=== PATIENT | female | born 1980 | race Caucasian/White ===

== ENCOUNTER → 2022-03-22 11:43 | Outpatient (CLI) | payer OTHER, SELFPAY ==
--- NOTE | 2022-03-22 11:46 | DI.MRI.S_ITS ---
BREAST MRI OF BOTH BREASTS: 03/22/2022 CLINICAL: Diffuse cystic mastopathy. Ripple in breast. PROCEDURE: MR BREAST BI WO/W CON INDICATIONS: Diffuse cystic mastopathy of unspecified breast TECHNIQUE: The patient was placed prone in a dedicated breast imaging coil. Precontrast axial STIR and 3D FLASH without fat saturation sequences were obtained. Both before and after bolus injection of contrast, sequential 1-minute axial 3D FLASH with fat saturation sequences for 3 time points, with subtraction images and maximum intensity projections (MIP's) generated. Delayed sagittal FLASH images with fat saturation were also obtained. CONTRAST: 20 cc ProHance IV contrast. Computer-aided detection, including computer algorithm analysis of MRI image data for lesion detection and characterization, pharmacokinetic analysis, with further physician review for interpretation, was performed. COMPARISON: Reports from outside right breast ultrasound 10/05/2021 and diagnostic mammogram 06/03/2021. No images available at this time. Prior reports document history of palpable abnormality right breast 3 o'clock 1 cm from nipple. FINDINGS: Image quality: Excellent. There is mild background parenchymal enhancement. Right breast: No mass or suspicious enhancement. No significant cysts. Retropectoral implant is intact. Left breast: No mass or suspicious enhancement. No significant cysts. Retropectoral implant is intact. Miscellaneous: No enlarged lymph nodes. IMPRESSION: BENIGN No mass or suspicious enhancement. Implants are intact. No adenopathy. BIRADS 2 Recommend comparison with prior imaging when available. A 1 year screening mammogram is recommended. COMMENT: The imaging literature indicates that a negative contrast breast MRI examination has a high sensitivity and a moderate specificity for detecting and excluding invasive carcinomas to a detection threshold of 3-5 mm; nonetheless, appropriate clinical and mammographic follow-up are recommended. MRI is not sensitive for detecting DCIS (ductal carcinoma in situ) and may not detect large invasive neoplasms that show only minimal enhancement such as mucinous carcinoma. If there are suspicious calcifications or clinically worrisome palpable masses, then biopsy should still be considered. Invasive neoplasms can be hidden by co-existent and benign enhancement caused by mastitis, hormone therapy effects, radiation therapy, , and recent biopsy or surgery. False positive examinations can occur in a number of circumstances, including breasts that have recently been subject to invasive procedures and those that contain atypical ductal hyperplasia, hormonally stimulated glandular tissue, fat necrosis, or radial scars. Dictated by: Jerald Pelayo M.D. on 03/29/2022 at 14:19 This exam was interpreted at Station ID: [id number]. Electronically Signed By: Jerald Pelayo M.D. slc/:03/29/2022 14:38:36 letter sent: Normal Exam ACR BI-RADS Category 2: Benign Finding(s) 3342F
== END ==
PROVIDERS: PCP General Practice; Referring Provider General Practice; Visit Provider General Practice
DX: N60.19 Diffuse cystic mastopathy of unspecified breast (principal); Z98.82 Breast implant status
CPT/HCPCS: 77049; A9579

== ENCOUNTER 2022-08-11 12:12 | Inpatient (IN) | payer OTHER, SELFPAY ==
[2022-07-28 12:43] VITALS: BMI 25.4
[2022-08-11] VITALS (10 sets, daily range): BP systolic 137–152; BP diastolic 80–94; PULSE 64–104; RESP 11–18; TEMP 36.3–36.8; O2SAT 91–100; BMI 25.4
--- NOTE | 2022-08-11 | DI.RAD.S_ITS ---
PROCEDURE: XR CERVICAL SPINE 2V OR 3V INDICATIONS: ACDF TECHNIQUE: 2 intraoperative view(s) of the cervical spine were acquired. COMPARISON: [facility] Outside Film, CR, XR CERVICAL SPINE 2 OR 3 VIEWS, 02/09/2022, 10:03. FINDINGS: Intraoperative views demonstrate anterior fusion hardware and interbody device placement C4-C6. IMPRESSION: Postsurgical sequelae. Dictated by: Virginia Cook M.D. on 08/12/2022 at 11:44 Transcribed by: MAY on 08/12/2022 at 11:45 Approved by: Virginia Cook M.D. on 08/12/2022 at 16:48
[2022-08-11] MEDS: LACTATED RINGERS 1,000 ML 100 ML IV (12:39)
[2022-08-11 13:10] LABS: COVID19 -Nasal RAPID Negative (Negative)
--- NOTE | 2022-08-11 14:06 | PM.PREOP ---
Pre-operative Note COVID-19 COVID-19 status: Negative Result date/Date tested (Pos, Neg/Pending): 08/10/22 Criteria for continued procedure: Expected advancement of disease process, Possibility delay results in more complex future surgery or treatment, Increased loss of function, Continuing or worsening of significant or severe pain, Deterioration of the patient's condition or overall health and Delay expected to result in less-positive ultimate med/surg outcome Interval Note History & Physical reviewed/Exam performed by Physician: Yes Changes to H&P: No
[2022-08-11] MEDS: CEFAZOLIN 2 GM/100 ML PREMIX 100 ML IV ×2 (15:05→22:26)
--- NOTE | 2022-08-11 15:18 | SUR.OPER ---
Supine on padded OR bed, head on GEL DONUT, arms padded and tucked at sides, legs uncrossed, safety belt at thigh, tape over blanket over lower legs . CLOTH TAPE USED TO HOLD TRACTION DOWN ON SHOULDERS.
--- NOTE | 2022-08-11 15:47 | SUR.OPER ---
Supine, head on gel donut. Arms padded with gel pads, tucked at sides, towel roll under shoulders. Safety belt at thigh. Legs uncrossed.
[2022-08-11] MEDS: BUPIVACAINE 0.25% (PF) 10 ML, EPINEPHrine 0.3 MG INJ (16:15)
--- NOTE | 2022-08-11 17:09 | P.OP_ITS ---
Operative Date/Time/Diagnoses Date of procedure: 08/11/22 Time of procedure: 14:00 Pre-op diagnosis: 1. C4-5, C5-6 spinal stenosis 2. 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 C4-5, C5-6 anterior cervical diskectomy and fusion 2. C4-5, C5-6 anterior interbody cage placement 3. C4-5, C5-6 anterior instrumentation with plate and screw placement in C5-C6 and C7 vertebrae 4. Utilization of microsurgical technique and operating microscope Same procedure as scheduled: Yes Indications: Patient has been having chronic neck pain and worsening cervical radiculopathy. Patient failed multiple conservative management with worsening pain weakness and numbness in her upper extremity. Patient has been having difficulty performing activity of daily living. After discussing risks benefits of treatment options, patient elected proceed with surgery. Surgeon: Poonam Quan Biology Specialist: Emily Foy Click Yes if Unassisted: No Anesthesia Type: General Operative Notes Closure Type: primary Specimen(s): none sent Prosthetic devices, grafts, tissues, transplants, or devices: Globus Extend Plate, Globus Hedron C cages Estimated Blood Loss (mL): 5 Blood products transfused: none Procedure in detail: Patient was seen in the preoperative area. Risks and benefits of the surgery was discussed with the patient. Operative consent was obtained and placed in the chart. Patient was then taken to the operative room. Prophylactic antibiotic was given less than 0.5 hr prior to skin incision. General anesthesia was administered. Patient was placed into a supine position on her radiolucent table. Bilateral shoulders were taped down to allow proper C-arm imaging. Anterior cervical area was prepped and draped in a sterile fashion. Time-out was performed at this time. Using lateral C-arm imaging, the level between C4 and C6 was identified and marked on patient's neck. A oblique incision from midline towards medial border of sternocleidomastoid muscle was made. The platysma muscle was incised in line with skin incision. Metzenbaum scissor was used to develop the plane between the medial border of sternocleidomastoid d and the strap muscles medially. The carotid sheath and its contents were identified and protected behind the hand- held retractor during the entire case. The plane between the carotid sheath and strap muscles was developed with Metzenbaum scissors. Dissection was made down to the level of the anterior cervical fascia. Longus colli muscle was incised on the anterior aspect of vertebral bodies bilaterally from C4-C6. Spinal needle was placed into the C5-6 disc space and confirmed with lateral C-arm imaging. Using microsurgical technique and operative microscope, anterior cervical diskectomy was performed at C4-5 and C5-6 level. This was done by removing the disc material, removing the anterior and posterior osteophytes posterior longitudinal ligaments along with performing bilateral foraminotomies at both levels. Patient was found to have severe central and foraminal stenosis at both levels. Patient's stenosis was fully decompressed after decompression was completed. After the diskectomy was completed, 2 anterior interbody cages were obtained. The cages were packed with DBM bone grafting material. One cage each along with the bone grafting material was then packed into the interbody spaces from C4-6 with one cage into each interbody level. After the cages were placed, the anterior cervical plate was stabilized to the C4-6 vertebrae using 2 screws at each each level. Total 6 screws were placed. After confirming placement of the hardware with AP and lateral C-arm imaging, the screws were locked into the plate using the locking mechanism and torque limiting screwdriver. After the hardware was placed and confirmed with AP and lateral C-arm imaging, the wound was irrigated with sterile normal saline. The platysma muscle and the subcutaneous tissue was closed with 2-0 Vicryl. The skin was closed with 4-0 Monocryl and Steri-Strips. Patient tolerated the procedure well. Patient was transferred recovery room in stable condition. There were no complications. Complications: none Post-operative Condition: stable Disposition: PACU Plan for aftercare: Admit to inpatient hospital
[2022-08-11] MEDS: METOCLOPRAMIDE 10 MG/2 ML INJ IV (17:18)
[2022-08-11] MEDS: ONDANSETRON 4 MG/2 ML INJ IV (17:19)
[2022-08-11] MEDS: OXYCODONE IR 5 MG TABLET PO ×2 (17:36→18:34)
[2022-08-11] MEDS: hydrOXYzine pamoate 25 MG CAPSULE PO (18:34)
[2022-08-11] MEDS: ACETAMINOPHEN 325 MG TABLET 650 MG PO (18:34)
[2022-08-11] MEDS: LACTATED RINGERS 1,000 ML 125 ML IV (18:35)
[2022-08-11] MEDS: SENNOSIDES 8.6 MG TABLET 17.2 MG PO (20:32)
[2022-08-11] MEDS: DOCUSATE 100 MG CAPSULE PO (20:32)
[2022-08-11] MEDS: OXYCODONE IR 10 MG TABLET PO (21:42)
[2022-08-12] MEDS: OXYCODONE IR 10 MG TABLET PO (00:31)
[2022-08-12] MEDS: hydrOXYzine pamoate 25 MG CAPSULE PO ×2 (00:31→08:14)
[2022-08-12] MEDS: ACETAMINOPHEN 325 MG TABLET 650 MG PO ×2 (00:31→08:15)
[2022-08-12 03:43] VITALS: BP 137/81; PULSE 68; RESP 16; TEMP 36.4; O2SAT 99
[2022-08-12] MEDS: CEFAZOLIN 2 GM/100 ML PREMIX 100 ML IV (06:50)
[2022-08-12] MEDS: OXYCODONE IR 5 MG TABLET PO ×2 (08:14→11:10)
[2022-08-12] MEDS: polyethylene glycoL 3350 17 GM POWD.PACK PO (08:14)
[2022-08-12] MEDS: DOCUSATE 100 MG CAPSULE PO (08:15)
[2022-08-12] MEDS: LORATADINE 10 MG TABLET PO (08:16)
--- NOTE | 2022-08-12 08:53 | OT.IP.EVAL ---
Current Diagnoses Spinal stenosis, cervical region (08/11/22) Surgery Performed Operation Date: 08/11/22 13:45 Actual Procedures p C4-5, C5-6 ACDF with anterior instrumentation - Poonam Quan MD Past Medical History (Last Reviewed 08/12/22 @ 10:36 by Emily Foy PA-C) Anxiety Depression Easy bruisability History of COVID-19 (~09/2020) Numbness Seasonal allergies Spinal stenosis, cervical region Surgical History (Last Reviewed 08/12/22 @ 10:36 by Emily oFy PA-C) History of bladder repair surgery History of gynecologic surgery History of surgery on arm Hx of breast augmentation Hx of hernia repair Hx of hysterectomy Occupational Therapy Inpatient Evaluation/Re-Eval M1 PT/OT-IP Prior Functional Status Start: 08/12/22 12:55 Freq: NEEDED Status: Active Protocol: Document 08/12/22 08:53 [facility] (Rec: 08/12/22 13:05 [facility] [id number]) Medical Review Prior Functional Status Medical History Reviewed Yes Diet/Fluid Consistency Regular Communication WFL Mobility and Gait Indep without AD Activities of Daily Living and IADL's Indep Social History Household Members family Living Arrangements Mobile home Number of Floors (Floors) One Floor Number of Stairs To Enter/Railing? 4 with B rails Home Environment Standard Height Toilet,Tub/ Shower Home Equipment Shower Seat without Backrest Employment Status Active Duty M2 OT-IP Current Condition Start: 08/12/22 12:55 Freq: Status: Active Protocol: Document 08/12/22 08:53 [facility] (Rec: 08/12/22 13:05 [facility] [id number]) Occupational Therapy Current Condition Current Condition Evaluation Date 08/12/22 Treatment Diagnosis S/p C4-5, C 5-6 ACDF Diagnosis Onset Date 08/11/22 M3 OT- IP Subjective and Pain Start: 08/12/22 12:55 Freq: Status: Active Protocol: Document 08/12/22 08:53 [facility] (Rec: 08/12/22 13:05 [facility] [id number]) OT- Subjective Occupational Therapy Visit Type Type Initial Evaluation Visit Start Time 08:53 Visit Stop Time 09:15 Total Visit Minutes 22 Occupational Therapy Visit Comments Patient Comments Pt agreed to get up, pt's significant other in the room. Patient/Caregiver Goals To go home. OT Pain Assessment Pain When Pain Assessed At Rest Pain Present Pain Present Pain Reported Location NECK Intensity 3 Scale Used Numeric (0 - 10) M4 OT- IP ADL's Start: 08/12/22 12:55 Freq: Status: Active Protocol: Document 08/12/22 08:53 [facility] (Rec: 08/12/22 13:05 [facility] [id number]) OT [id number] General Evaluation Self-Feeding Ability Independent Comments OT Self-Feeding Comments Educated on eating upright, softer food, and information given to pt regrading swallowing after ACDF surgery. OT ADL-Grooming General Evaluation Grooming Ability Independent OT ADL-Oral Care General Eval Oral Care Ability Independent Comments Oral Care Comments Initial vc to spit into a cup or hinge at her hips to best follow her cervical precautions. OT ADL-Dressing General Eval Lower Body Dressing Ability Standby Assistance OT ADL-Toileting General Evaluation Toileting Ability Independent OT ADL-Bathing Comments OT Bathing Comments Not performed. M5 OT- IP IADL's Start: 08/12/22 12:55 Freq: Status: Active Protocol: Document 08/12/22 08:53 [facility] (Rec: 08/12/22 13:05 [facility] [id number]) OT-Instrumental Activities of Daily Living Deficits IADL Deficits Identified Deficits Home Safety Awareness Awareness of Need for Assistance at Home Good Awareness Ability to Problem Solve Emergency Able to Problem Solve Situations Home Safety Comments Pt has a supportive significant other to assist with her needs. M6 OT- IP Functional Cognition Start: 08/12/22 12:55 Freq: Status: Active Protocol: Document 08/12/22 08:53 [facility] (Rec: 08/12/22 13:05 [facility] [id number]) Cognitive Factors Limiting Selfcare Function Cognitive Ability Level of Alertness Alert Patient Orientation Name,Place,Situation Attention Span Ability Capable of Focused Attention, Capable of Sustained Attention Ability to Follow Commands Able to Follow Multi-Step Commands Cognitive Comments Cognitive Assessment Comments Intact OT- Vision and Hearing OT- Hearing Assessment OT- Hearing Assessment WFL OT- Vision Assessment Visual Acuity Glasses All The Time M7 OT- IP Mobility and Balance Start: 08/12/22 12:55 Freq: Status: Active Protocol: Document 08/12/22 08:53 [facility] (Rec: 08/12/22 13:05 [facility] [id number]) OT- Bed Mobility Assessment Supine to Sit Supine to Sit Assist Independent Sit to Supine Sit to Supine Assist Independent Scooting Scooting to Edge of Bed Independent OT-Transfer Assessment Sit to and From Stand Sit to and from Stand Independent Transfers Transfer Ability Standby Assistance Technique Transfer Destination Bed,Toilet Devices Transfer Assistive Devices None Comments Mobility Comments Pt distant supervision to independent for all mobility needs in the room. OT- Balance Assessment Sitting Balance and Reactions Static Sitting Balance Ability Normal Dynamic Sitting Balance Ability Normal Standing Balance and Reactions Static Standing Balance Ability Normal Dynamic Standing Balance Ability Good M8 OT- IP Objective Assessments Start: 08/12/22 12:55 Freq: Status: Active Protocol: Document 08/12/22 08:53 [facility] (Rec: 08/12/22 13:05 [facility] [id number]) OT-Muscle Tone Assessment Muscle Tone WNL Yes M9 OT- IP Assessment and Plan Start: 08/12/22 12:55 Freq: Status: Active Protocol: Document 08/12/22 08:53 [facility] (Rec: 08/12/22 13:05 [facility] [id number]) OT Summary Assessment and Plan Potential Rehabilitation Potential Excellent Analytic Complexity at Evaluation Low Summary OT Impairments Pain,Balance,Bathing Progress Towards Goals Progressing Toward Goals Assessment Summary Pt low complexity and main barrier is pain. Pt has a supportive significant other who is able to assist pt as needed. Pt on OT eval mostly independent for ADl needs and just needing reminders to log roll from sit to supine. Pt to go home today. Goals Bathing Goal Independent Days to Meet Goals 1 Frequency of Treatment Frequency Of Treatment Once a Day Treatment Plan OT Treatment Plan ADL Training,Functional Mobility,Patient/Family Education,Discharge Planning Discharge Recommendations OT Discharge Recommendations Home with Assistance Transportation Needs at Discharge Private Vehicle
[2022-08-12 09:05] VITALS: BP 141/90; PULSE 64; RESP 17; TEMP 36.3; O2SAT 100
--- NOTE | 2022-08-12 09:31 | CM.DANOTE ---
DCP: Case received, EMR reviewed and met with patient. Partner was sleeping by the window in her room. Introduced self and role. Was able to obtain information in order to complete DCP assessment. DCP assessment completed with information currently available. Patient is a 41 year old female who admitted yesterday morning to the care of the orthopedic team. PCP: Dr. Vega. Payer: confirmed: [employer]. Patient came to the hospital via private vehicle for a surgical procedure. Patient had C4-5, C5-6 anterior cervical diskectomy and fusion. Patient has history of spinal stenosis. Met with patient in her room. She was sitting up in bed, having some breakfast, neck brace in place. Confirmed that she resides in [place] with partner, Gume. She is active duty [employer], stationed at [employer] [facility], and is independent at her baseline. P: DCP to continue to follow. Patient should be able to go home when deemed medically stable. Simran Gunter RN/Director Global Intelligence Discharge Planning/Care Management CM Discharge Assessment Start: 08/12/22 09:30 Freq: Status: Active Protocol: Document 08/12/22 09:30 (Rec: 08/12/22 09:31 [id number]) Discharge Planning Assessment Assigned Integration Engineer Simran Gunter RN/Director Global Intelligence Advance Directives? No History Provided By Patient,Medical Record Prior Living Arrangements Mobile home Household Members family Type of transporation used prior to Drives own vehicle admit Independent with ADL's Yes Is patient alert and oriented? Yes Caregiver for Another No Barriers to Discharge No Discharge Plan Home Transportation Arrangement Partner Referrals Initiated None needed Whiteboard Updated in Patient Room with Yes name and ext. # of Integration Engineer Review Status In Process Next Review Type Continued Stay Review Pre-Anesthesia Assessment Start: 07/28/22 12:43 Freq: Status: Active Protocol: Document 07/28/22 12:43 [facility] (Rec: 07/28/22 12:59 [facility] [id number]) Pre-Anesthesia Assessment Preferred Name Sherita Patient Information Reviewed Via Phone Assessment Comment No preop testing ordered Primary Care Provider Lion/ Seen Specialist in Last 12 Months Yes Specialist Seen General surgeon,Orthopedist Primary Language Central [place] Snaker Tractor Driver Required No Height 5 ft 9 in Weight 172 lb Body Mass Index (BMI) 25.4 Hearing Ability Normal Visual Assist Contacts,Glasses Dentition Type Teeth, Natural Present,Dental Implants Barriers to Learning None Hx Anesthesia Reactions No Hx Family Anesthesia Reaction No Hx Malignant Hyperthermia No Hx Blood Transfusions No Anesthesia Review Requested No Engineering Aide No alcohol intake current alcohol intake frequency a few times a week Smoking Status Never smoker Substance Use Type does not use Pain Present Pain Reported Musculoskeletal Symptoms Back Pain,Joint Pain,Limited Range of Motion,Neck Pain, Numbness,Radiating Pain into Limb History of Falling (Recent or History of No ) Patient is completely paralyzed or No completely immobile Mental Status Oriented to own ability Is patient on oxygen? No Does patient have POLANCO/SOB No Hx Sleep Apnea No Currently Taking a Beta Thad No Can You Climb a Flight of Stairs Without Yes SOB Hx Chest Pain No Hx SOB No Hx Syncope or Dizziness Yes: Dizziness when hands are placed above head, move head Anti-Coagulant Therapy No Has a Ball Winder No Cardiac Testing No Hx Pacemaker/ICD No Pacemaker Rep Required? No Cardiac Clearance Received Not Applicable Diet Type At Home Regular Dysphagia No Gastrointestinal Symptoms None Urinary Catheter Present No Hx Urinary Self Catheterization No Diabetes No Patient No Lactating No Hx Drug Resistant Organism No Presence of External or Internal Medical Yes: Breast implants, left arm Devices hardware Have you had any close contact with No someone diagnosed with COVID-19? Received a COVID vaccine? Yes Received all doses? Yes Marital Status Lives With family Current Living Arrangements Mobile home Number of Floors (Floors) One Floor Support System Family,Significant Other Does the Patient Have Assistance After Yes: Boyfriend will assist Surgery with care at [place] Patient Discharge Plan Description Return Home Comment Pt advised overnight length of stay per surgeon Feels Safe in Current Environment Yes Been Physically Hurt or Threatened By a No Person in Current Environment Do you have thoughts of harming yourself None or others? Are you currently considering suicide? No Do you have a plan to hurt yourself or No Plan others? Do You Have Any Spiritual Beliefs That No May Affect Your HC Choices? Do You Have Any Cultural Practices That No May Affect Your HC Choices? Who Can We Speak to About Patient's Care Family, friends Identifying Code for Release of Patient Declines to issue Information Health Care Proxy/Next of Kin Gume ([email or web address]) Health Care Proxy Emergency Contact Name Gume ([email or web address]) Emergency Contact Advance Directives? No Power of Cash Surrender Calculator No PAC Instructions Medications to take/avoid, Nasal antibiotic,No ETOH/ petroleum product on skin DOS, NPO,Pre-surgical wash,Sensory aids,Sturdy shoes/comfortable clothes,Do not bring valuables and remove jewelry
--- NOTE | 2022-08-12 10:28 | P.DS_ITS ---
History of Present Illness History of Present Illness Date Patient Seen: 08/12/22 Time Patient Seen: 07:15 Chief complaint: S/P ACDF Narrative: Patient is awake sitting up in bed this morning. She states she had no issues overnight and her pain has been well controlled with medication. She was no concerns and would like to go home today. Discharge Providers Provider Date of admission: 08/11/22 12:12 Discharge Date: 08/12/22 Primary care physician: Jarad Vega MD Consults: 08/11/22 18:00 Consult to Occupational Therapy Evaluate & Treat Comment: Physician Instructions: Evaluate and treat Consult to Physical Therapy Evaluate & Treat Comment: Physician Instructions: Evaluate and Treat Discharge provider: Emily Foy PA-C Summary Hospital Course Discharge Diagnosis: S/p ACDF Hospital Course: Operative Date/Time/Diagnoses Date of procedure: 08/11/22 Time of procedure: 14:00 Pre-op diagnosis: 1. C4-5, C5-6 spinal stenosis 2. 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 C4-5, C5-6 anterior cervical diskectomy and fusion 2.? C4-5, C5-6 anterior interbody cage placement 3.? C4-5, C5-6 anterior instrumentation with plate and screw placement in C5-C6 and C7 vertebrae 4.? Utilization of microsurgical technique and operating microscope Same procedure as scheduled: Yes Indications: ?Patient has been having chronic neck pain and worsening cervical radiculopathy. Patient failed multiple conservative management with worsening pain weakness and numbness in her upper extremity.? Patient has been having difficulty performing activity of daily living.? After discussing risks benefits of treatment options, patient elected proceed with surgery. Surgeon: Poonam Quan Ton Cylinder Inspector: Emily Foy Click Yes if Unassisted: No Anesthesia Type: General Operative Notes Closure Type: primary Specimen(s): none sent Prosthetic devices, grafts, tissues, transplants, or devices: Globus Extend Plate, Globus Hedron C cages Estimated Blood Loss (mL): 5 Blood products transfused: none Status at Discharge Cognitive/behavioral status at discharge: oriented Functional status at discharge: independent ambulation Overall status at discharge: patient is progressing back to baseline Exam Vital Signs (past 8 hours): - 08/12/22 03:43 08/12/22 09:05 Temperature 97.5 F L 97.3 F L Pulse Rate 68 64 Respiratory Rate 16 17 Blood Pressure 137/81 141/90 H Pulse Oximetry 99 100 Oxygen Flow Rate 0 0 Oxygen Delivery Method Nasal Cannula Oxygen Flow Rate 0 Narrative Exam Narrative: Pleasant 41 year old female. Awake, alert, and oriented. Intraoperative dressing intact with only small area of serous drainage at the base of the dressing. No surrounding erythema, swelling, or warmth. Strength and sensation intact to b ilateral upper extremities. Objective Labs Labs: Laboratory Results - last 24 hr 08/11/22 12:20 SARS-CoV-2 (PCR) Negative PENDING SALE TO [facility] Medical History Anxiety Depression Easy bruisability History of COVID-19 (~09/2020) Numbness Seasonal allergies Spinal stenosis, cervical region Surgical History History of bladder repair surgery History of gynecologic surgery History of surgery on arm Hx of breast augmentation Hx of hernia repair Hx of hysterectomy Social History household members: family Smoking Status: Never smoker alcohol intake: current Discharge Assessment & Plan Assessment and Plan Assessment: Patient is progressing as expected after ACDF. Her pain is well controlled with medication. Plan of Treatment: Continue multimodal pain control. Continue soft cervical collar. Follow up at postoperative appointment 2 weeks after surgery. Discharge Plan Discharge Plan Patient Disposition: Home Provider Discharge Comment: Discharge once safe and cleared by PT Discharge orders & Medications Prescriptions: New acetaminophen 325 mg Tablet 650 mg PO Q6H PRN (Reason: Fever/Mild Pain (1-3)) Qty: 120 0RF oxycodone 5 mg Tablet 5 mg PO Q4-6H PRN (Reason: Pain, Moderate (4-6)) Qty: 42 0RF hydroxyzine pamoate 25 mg Capsule 25 mg PO Q4HR PRN (Reason: Nausea And Vomiting) Qty: 40 0RF Continued estradiol 0.025 mg/24 hr patch semiweekly 1 patch transdermal 2XW Rx Instructions: apply 1 patch for 3 days alternating with 1 patch for 4 days each week Zyrtec 10 mg capsule 10 mg PO DAILY fluticasone propionate 50 mcg/actuation [place],Suspension 1 spray INTRANASAL DAILY Rx Instructions: administer into each nostril Follow up/Referrals: Jarad Vega MD [Primary Care Provider] - Eimly Foy PA-C [Advanced Petrography Teacher] - Poonam Quan MD [Physician] - As previously scheduled Diet/Activity/Treatments Diet: Diet as Tolerated Skin/Wound/Dressing Care Report to your healthcare provider any signs of infection, such as:: chills, fever, night sweats, unusual drainage and unusual redness Dressing: Keep dressing clean, dry, and intact until your 2 week postoperative appointment. If it gets saturated on the inside please call our office for dressing change. Visit Report/Discharge Packet Instructions: DI for Anterior Cervical Discectomy and Fusion Stand Alone Forms: Patient Portal/API, Stroke Signs & Symptoms, Surgery D ischarge Discharge Data Primary Care Provider: Jarad Vega Quality VTE Deep Vein Thrombosis/Pulmonary Embolism Present on Admission: No
--- NOTE | 2022-08-12 11:11 | PT.IIE ---
Current Diagnoses Spinal stenosis, cervical region (08/11/22) Surgery Performed Operation Date: 08/11/22 13:45 Actual Procedures p C4-5, C5-6 ACDF with anterior instrumentation - Poonam Quan MD Surgical History (Last Reviewed 08/12/22 @ 10:36 by Emily Foy PA-C) History of bladder repair surgery History of gynecologic surgery History of surgery on arm Hx of breast augmentation Hx of hernia repair Hx of hysterectomy Medical History (Last Reviewed 08/12/22 @ 10:36 by Emily Foy PA-C) Anxiety Depression Easy bruisability History of COVID-19 (~09/2020) Numbness Seasonal allergies Spinal stenosis, cervical region Physical Therapy Inpatient Evaluation/Re-Eval M1 PT/OT-IP Prior Functional Status Start: 08/12/22 11:04 Freq: NEEDED Status: Active Protocol: Document 08/12/22 11:04 ES (Rec: 08/12/22 11:11 ES [id number]) Medical Review Prior Functional Status Medical History Reviewed Yes Diet/Fluid Consistency Regular Communication WFL Mobility and Gait Indep without AD Activities of Daily Living and IADL's Indep Social History Household Members family Living Arrangements Mobile home Number of Floors (Floors) One Floor Number of Stairs To Enter/Railing? 4 with B rails Home Environment Standard Height Toilet,Tub/ Shower Home Equipment Shower Seat without Backrest Employment Status Active Duty M2 PT-IP Current Condition Start: 08/12/22 11:04 Freq: NEEDED Status: Active Protocol: Document 08/12/22 11:04 ES (Rec: 08/12/22 11:11 ES [id number]) Physical Therapy Current Condition Current Condition Evaluation Date 08/12/22 Treatment Diagnosis s/p C4-5, 5-6 diskectomy and anterior fusion Onset Date 08/11/22 M3 PT-IP Subjective Start: 08/12/22 11:04 Freq: NEEDED Status: Active Protocol: Document 08/12/22 11:04 ES (Rec: 08/12/22 11:11 ES [id number]) Subjective Physical Therapy Visit Type Type Initial Evaluation Visit Start Time 10:24 Visit Stop Time 10:34 Total Visit Minutes 10 Physical Therapy Visit Comments Patient Comments Patient alert in bed, significant other present in room. Patient reported pain was manageable at the moment and was agreeable to work with PT. Therapy Pain Assessment Pain Present Pain Present Pain Reported Location NECK Intensity 3 Scale Used Numeric (0 - 10) M4 PT-IP Mobility and Gait Start: 08/12/22 11:04 Freq: NEEDED Status: Active Protocol: Document 08/12/22 11:04 ES (Rec: 08/12/22 11:11 ES [id number]) PT-Bed Mobility Assessment Rolling Type of Rolling Log Rolling Level of Assist Independent Supine to Sit Supine to Sit Independent Sit to Supine Sit to Supine Independent Scooting Scooting to Edge of Bed Independent Scooting Up and Down in Bed Independent PT-Transfer Assessment Sit to and From Stand Sit to and from Stand Independent Equipment Transfer Assistive Device None Orthotic/Prosthetic Devices or Brace: Yes Gait Assessment Gait Gait Assistance Required: Independent Distance (Feet) 180 Assistive Devices Assistive Device None Orthotic/Prosthetic Devices or Brace: Yes Gait Deviations General Gait Pattern Within Normal Limits Stair Climbing Assessment Evaluation Level of Assist On Stairs Independent Devices Stair Climbing Assistive Devices Left Railing,Right Railing Technique/Endurance Stair Climbing Direction Ascend and Descend Stair Climbing Technique Step Over Step Number of Steps Climbed 3 Query Text: Stair Climbing Set # Repetitions (reps) 1 Comments Stair Climbing Comments Education for using UE's for balance vs pushing/pulling with good compliance. PT-Balance Assessment Sitting Balance and Reactions Static Sitting Balance Ability Normal Dynamic Sitting Balance Ability Normal Standing Balance and Reactions Static Standing Balance Ability Normal Dynamic Standing Balance Ability Normal M5 PT-IP Objective Assessments Start: 08/12/22 11:04 Freq: NEEDED Status: Active Protocol: Document 08/12/22 11:04 ES (Rec: 08/12/22 11:11 ES [id number]) Orientation Orientation/Cognition Level of Alertness Alert Orientation Name,Age,Birthday,Month,Date, Year,Day of Week,Place, Situation Language Function Ability No Deficits Noted Safety Awareness Understands Safety Issues Memory Description No Deficits Noted Gross Range of Motion Upper Extremity ROM Assessment Within Functional Limits Lower Extremity ROM Assessment Within Functional Limits Strength Lower Extremity Strength Assessment Within Functional Limits Comments Strength Comments UE's not tested due to surgical precautions. Coordination Assessment Gross Coordination Gross Coordination WNL M6 PT-IP Treatment Start: 08/12/22 11:04 Freq: NEEDED Status: Active Protocol: Document 08/12/22 11:04 ES (Rec: 08/12/22 11:11 ES [id number]) Physical Therapy Treatment Education Education Provided Precautions M7 PT-IP Assessment and Plan Start: 08/12/22 11:04 Freq: NEEDED Status: Active Protocol: Document 08/12/22 11:04 ES (Rec: 08/12/22 11:11 ES [id number]) PT Summary Assessment and Plan Potential Rehabilitation Potential Excellent Status of Condition at Evaluation Stable Summary Impairments Pain Assessment Summary Patient is a 41 year old who presented post-op day 1 with independent mobility and well- managed pain. She was able to perform all mobility tasks independently without AD without c/o increased pain. She was able to ascend/descend stairs without difficulty with min use of rails. She is appropriate to d/c home safely with partner and family support. Frequency of Treatment Frequency Of Treatment Discharge Precautions Cervical Spine Precautions Soft Collar for Comfort,No Heavy Lifting,Log Roll Recommendations To Nursing Amount of Assist Needed Independent Discharge Recommendations PT Discharge Recommendations Home Transportation Needs at Discharge Private Vehicle
== END 2022-08-12 11:26 | disposition home or self-care (01) | DRG 473 ==
PROVIDERS: Admitting Provider Orthopaedic Surgery Orthopaedic Surgery of the Spine; PCP General Practice; Referring Provider Orthopaedic Surgery Orthopaedic Surgery of the Spine; Visit Provider Orthopaedic Surgery Orthopaedic Surgery of the Spine
PROC: 0RG20A0 Fusion of 2 or more Cervical Vertebral Joints with Interbody Fusion Device, Anterior Approach, Anterior Column, Open Approach (ICD-10-PCS; principal; 2022-08-11 13:45)
DX: M48.02 Spinal stenosis, cervical region (principal); M47.22 Other spondylosis with radiculopathy, cervical region; Z20.822 Contact with and (suspected) exposure to COVID-19
CPT/HCPCS: 72040; 76000; 87635; 97161; 97165; C9803; C1713; J0171; J0330; J0690; J1100; J1170; J2250; J2405; J2704; J2765; J3010

== ENCOUNTER → 2023-02-15 08:11 | Outpatient (CLI) | payer OTHER, SELFPAY ==
[2022-08-11 20:47] VITALS: BMI 25.4
--- NOTE | 2023-02-15 | DI.MRI.S_ITS ---
PROCEDURE: MR HIP LT W CON INDICATIONS: PAIN IN LEFT HIP TECHNIQUE: After the administration of 10 mL of dilute intra-articular Gadolinium contrast, coronal STIR of the bony pelvis; coronal and oblique axial T1 spin echo with fat saturation, axial T2 fast spin echo with fat saturation, sagittal T1 spin echo with and without fat saturation of the involved hip. COMPARISON: None. FINDINGS: Image quality: Excellent. Bones and joints: Bone marrow of the pelvic ring and proximal femurs show normal signal throughout. No intraosseous lesions or fractures. No avascular necrosis of the femoral head. The visualized lower lumbar spine appears normally aligned. The ligamental, neck, and labral plicae appear normal where visualized. Tendons and ligaments: Distal left gluteus medius and minimus tendinosis at their insertions on greater trochanter is seen, without associated muscle atrophy. The nearby proximal iliotibial band also appears intact. The iliopsoas tendon appears intact, without adjacent bursal fluid collections or evidence for impingement syndrome. The origin of the hamstring tendon is intact at the ischial tuberosity, as well as the associated sacrotuberous ligament. The straight and reflected heads of the rectus femoris muscle origin appear intact, as well as the conjoint tendon. The ligamentum teres appears intact where visualized. Labrum and cartilage: Subtle fraying and contrast extension involving superior anterior left hip labrum at 1 to 2 o'clock position is seen suggestive of superior anterior labral tear. Cartilage surface of the femoral head appears of normal thickness. No paralabral cysts. The alpha angle of the femur is within normal limits at less than 55 degrees. Soft tissues: Visualized muscles demonstrate normal bulk and internal signal. Quadratus femoris muscle demonstrates no internal edema to suggest ischiofemoral impingement. The proximal sciatic neurovascular bundle appears normal adjacent to the hamstring tendons. No free pelvic fluid. Bladder wall thickness is normal. Genitourinary structures and bowel loops appear normal where visualized. IMPRESSION: 1. Suggestion of superior anterior left hip labral tear at 1 to 2 o'clock position. 2. Distal left gluteus medius and minimus tendinosis. No other muscle or tendon signal abnormalities. 3 point. No marrow edema. No fracture or dislocation. No evidence of avascular necrosis. Dictated by: Ganga Purvis M.D. on 02/15/2023 at 11:33 Approved by: Ganga Purvis M.D. on 02/15/2023 at 12:04
--- NOTE | 2023-02-15 | DI.RAD.S_ITS ---
PROCEDURE: FL HIP INJECTION MR/CT LT INDICATIONS: PAIN IN LEFT HIP TECHNIQUE: The indications, alternatives, benefits, risks, and complications of the procedure were explained to the patient. Written informed consent was obtained and placed in the chart. The hip was examined fluoroscopically with the legs fixed in slight internal rotation, and a site for needle placement chosen for entry into the hip joint from an anterior approach. Care was taken to locate the common femoral artery and vein beforehand. The skin was prepped and draped in a sterile fashion, and 1% Lidocaine infiltrated from skin down to joint capsule. A spinal needle was inserted into the joint, and a small amount of iodinated contrast media injected to confirm intra-articular placement of the needle tip. This was followed by approximately 10 mL dilute solution of a gadolinium containing MR contrast agent. The needle was removed and a dressing was applied. The patient was given postprocedural instructions and sent to the MR suite for imaging. COMPARISON: [facility], , MR HIP LT W CON, 02/15/2023, 9:07. FINDINGS: A single fluoroscopic spot image demonstrates intra-articular location of injected iodinated contrast. IMPRESSION: Successful fluoroscopically guided administration of dilute Gadolinium solution into the hip joint for MR arthrogram. Dictated by: Kristofer Vasquez M.D. on 02/16/2023 at 13:29 Approved by: Kristofer Vasquez M.D. on 02/16/2023 at 13:29
[2023-02-15] MEDS: SODIUM CHLORIDE 0.9 % 20 ML VIAL IV (10:11)
[2023-02-15] MEDS: LIDOCAINE 1% 20 ML INJ (10:11)
== END ==
PROVIDERS: PCP General Practice; Referring Provider Student in an Organized Health Care Education/Training Program; Visit Provider Student in an Organized Health Care Education/Training Program
DX: M25.552 Pain in left hip (principal)
CPT/HCPCS: 27093; 73722; 77002

== ENCOUNTER 2024-05-16 15:53 | Emergency (ER) | payer OTHER, SELFPAY ==
[2022-08-11 20:47] VITALS: BMI 25.4
[2024-05-16 16:09] VITALS: BP 134/90; PULSE 78; RESP 16; TEMP 36.9; O2SAT 100; BMI 29.5
--- NOTE | 2024-05-16 16:12 | DI.RAD.S_ITS ---
PROCEDURE: XR SHOULDER LT MIN 2V INDICATIONS: surgery february, fell on ice this morning onto shoulder TECHNIQUE: 3 views of the shoulder were acquired. COMPARISON: None. FINDINGS: Bones: No fractures or dislocations. No suspicious bony lesions. Visualized ribs appear intact. Soft tissues: No suspicious soft tissue calcifications. IMPRESSION: No acute left shoulder fracture or dislocation. No gross soft tissue abnormalities. Dictated by: Ganga Purvis M.D. on 05/16/2024 at 16:31 Approved by: Ganga Purvis M.D. on 05/16/2024 at 16:32
--- NOTE | 2024-05-16 17:52 | ED.FALL ---
HPI - Fall <Shruthi Guidry PA-C - Last Filed: 05/16/24 19:50> General Chief Complaint: Fall Stated Complaint: Fell Down Stairs after L Shoulder Sx Time Seen by Provider: 05/16/24 17:52 History of Present Illness HPI Narrative: Ms. Christensen is a very pleasant 43-year-old female that had left shoulder surgery in February (labrum repair) who presents to the emergency department for left shoulder pain after slip and fall down stairs at 8:00 a.m. this morning. Patient states she was outside taking the dogs out when she slipped on some ice on her outdoor stairs causing her to land primarily onto the left shoulder. States because of her recent surgery she was concerned, she notices some pinching/pain sensation on the anterior left shoulder when she lifts her left arm greater than 90?. States she is currently doing physical therapy and has been making good progress. She is also having some posterior left shoulder pain discomfort with palpation. Denies head trauma, LOC, nausea or vomiting after the event, dizziness, visual disturbance, any other concerns. No pain of bilateral ankles, knees, wrists, elbows. No pain with range of motion of neck. Related Data Home Medications Medication Instructions Recorded Confirmed cetirizine 10 mg capsule (Zyrtec) 10 mg PO DAILY 04/01/22 07/28/22 estradiol 0.025 mg/24 hr 1 patch transdermal 2XW 04/01/22 08/11/22 semiweekly transdermal patch fluticasone propionate 50 1 spray intranasal DAILY 07/28/22 08/11/22 mcg/actuation nasal spray,suspension Previous Rx's Medication Instructions Recorded acetaminophen 325 mg tablet 650 mg (2 x 325 mg) PO Q6H PRN 08/12/22 Fever/Mild Pain (1-3) #120 tabs hydroxyzine pamoate 25 mg capsule 25 mg PO Q4HR PRN Nausea And 08/12/22 Vomiting #40 caps oxycodone 5 mg tablet 5 mg PO Q4-6H PRN Pain, Moderate 08/12/22 (4-6) #42 tabs Allergies Allergy/AdvReac Type Severity Reaction Status Date / Time No Known Drug Allergies Allergy Verified 08/11/22 12:10 Review of Systems <Shruthi Guidry PA-C - Last Filed: 05/16/24 19:50> Review of Systems ROS Unobtainable: All systems reviewed & are unremarkable except as noted in HPI and below Patient History <Shruthi Guidry PA-C - Last Filed: 05/16/24 19:50> Medical History History of COVID-19 (~09/2020) Anxiety Depression Easy bruisability Spinal stenosis, cervical region Numbness Seasonal allergies Surgical History History of surgery on arm Hx of breast augmentation History of gynecologic surgery History of bladder repair surgery Hx of hernia repair Hx of hysterectomy Social History household members: family Smoking Status: Never smoker alcohol intake: current Smoking Status: Never smoker alcohol intake frequency: a few times a week Exam <Shruthi Guidry PA-C - Last Filed: 05/16/24 19:50> Narrative Exam Narrative: GENERAL: 43 year old patient appears stated age. Well-developed patient, in no acute distress. HEAD: Atraumatic. Normocephalic. EYES: PERRL. Extraocular motions intact. No scleral icterus. No injection or drainage. NECK: Trachea midline. Cervical ROM intact. No midline cervical tenderness. CARDIOVASCULAR: Regular rate and rhythm. RESPIRATORY: ?Nonlabored respirations. ?Speaking in clear, full sentences. ?Clear to auscultation. Breath sounds equal bilaterally. No wheezes, rales, or rhonchi. ? EXTREMITIES: No edema. Subjective pain in the anterior left shoulder with abduction greater than 90?. Tenderness to palpation of left posterior scapula and left paraspinal thoracic region. No bruising or deformities. No tenderness to palpation of bilateral ankles, knees, wrists, elbows, clavicles. BACK: Nontender without deformity or crepitance. NEURO: AOx3. ?Clear speech. ?Moves all 4 extremities appropriately. Sensation and strength intact in the distribution of median, radial, ulnar nerves bilaterally. SKIN: No rash or erythema of visible areas Initial Vital Signs Initial Vital Signs: Vital Signs Temperature 98.4 F 05/16/24 16:09 Pulse Rate 78 05/16/24 16:09 Respiratory Rate 16 05/16/24 16:09 Blood Pressure 134/90 05/16/24 16:09 Pulse Oximetry 100 05/16/24 16:09 Oxygen Delivery Method Room Air 05/16/24 16:09 <Ailyn Dupont MD - Last Filed: 05/16/24 23:27> Initial Vital Signs Initial Vital Signs: Vital Signs Temperature 98.4 F 05/16/24 16:09 Pulse Rate 78 05/16/24 16:09 Respiratory Rate 16 05/16/24 16:09 Blood Pressure 134/90 05/16/24 16:09 Pulse Oximetry 100 05/16/24 16:09 Oxygen Delivery Method Room Air 05/16/24 16:09 Course <Shruthi Guidry PA-C - Last Filed: 05/16/24 19:50> Orders Ordered: ED Orders 05/16/24 16:12 XR shoulder LT min 2V Stat Discontinued Medications Acetaminophen (Acetaminophen 325 Mg Tablet) 975 mg PO NOW ONE Stop: 05/16/24 18:13 Last Admin: 05/16/24 18:20 Dose: 975 mg Documented By: ROSEMARY Ketorolac Tromethamine (Ketorolac 30 Mg/Ml Vial) 30 mg IM NOW ONE Stop: 05/16/24 18:13 Last Admin: 05/16/24 18:20 Dose: 30 mg Documented By: ROSEMARY Vital Signs Vital signs: Vital Signs - 8 hr 05/16/24 16:09 05/16/24 18:38 Temperature 98.4 F Pulse Rate 78 76 Respiratory Rate 16 16 Blood Pressure 134/90 130/88 Pulse Oximetry 100 100 Oxygen Delivery Method Room Air Room Air <Ailyn Dupont MD - Last Filed: 05/16/24 23:27> Orders Ordered: ED Orders 05/16/24 16:12 XR shoulder LT min 2V Stat Discontinued Medications Acetaminophen (Acetaminophen 325 Mg Tablet) 975 mg PO NOW ONE Stop: 05/16/24 18:13 Last Admin: 05/16/24 18:20 Dose: 975 mg Documented By: ROSEMARY Ketorolac Tromethamine (Ketorolac 30 Mg/Ml Vial) 30 mg IM NOW ONE Stop: 05/16/24 18:13 Last Admin: 05/16/24 18:20 Dose: 30 mg Documented By: ROSEMARY Vital Signs Vital signs: Vital Signs - 8 hr 05/16/24 16:09 05/16/24 18:38 Temperature 98.4 F Pulse Rate 78 76 Respiratory Rate 16 16 Blood Pressure 134/90 130/88 Pulse Oximetry 100 100 Oxygen Delivery Method Room Air Room Air MDM - Fall <Shruthi Thompson DEVON Guidry - Last Filed: 05/16/24 19:50> Medical Records Attestation: I reviewed the patient's medical records. Imaging Data Left Shoulder X-Ray: Radiologist's Impression: PROCEDURE: XR SHOULDER LT MIN 2V INDICATIONS: surgery february, fell on ice this morning onto shoulder TECHNIQUE: 3 views of the shoulder were acquired. COMPARISON: None. FINDINGS: Bones: No fractures or dislocations. No suspicious bony lesions. Visualized ribs appear intact. Soft tissues: No suspicious soft tissue calcifications. IMPRESSION: No acute left shoulder fracture or dislocation. No gross soft tissue abnormalities. [facility] Narrative Medical decision making narrative: 43-year-old female that had left shoulder surgery in February (labrum repair) who presents to the emergency department for left shoulder pain after slip and fall down stairs at 8:00 a.m. this morning. Differential diagnosis includes but is not limited to a left shoulder contusion, sprain, strain, fracture, etc. On exam patient is in no acute distress, nontoxic appearing, vital signs within normal limits. She is some subjective pain in the anterior left shoulder with abduction greater than 90?, she is concerned about shoulder given recent surgery February. Otherwise she is feeling well, denies any other injuries, she does have some tenderness on left scapula/thoracic paraspinal region. Upper extremities are neurovascularly intact. No head trauma or neck pain. Left shoulder x-ray obtained in triage which reveals no acute left shoulder fracture or dislocation. Patient was very reassured. We did discuss supportive care for likely strain/contusion. She was given dose of acetaminophen and Toradol in the ED. Recommended ibuprofen/Tylenol for home, ice therapy, gentle stretching. She has lidocaine patches she can use at home. Patient has physical therapy that she will follow up with. Advised to follow up with orthopedic doctor. She verbalized understanding of all information is agreeable with the plan. She is stable for discharge home. Discharge Plan Departure Patient Disposition: Home Clinical Impression: Fall from slipping on ice Qualifiers: Encounter type: initial encounter Qualified Code(s): W00.9XXA - Unspecified fall due to ice and snow, initial encounter Contusion of left shoulder Qualifiers: Encounter type: initial encounter Qualified Code(s): S40.012A - Contusion of left shoulder, initial encounter Instructions: DI for Shoulder Pain Activity Restrictions/Additional Instructions: Today you were evaluated for left shoulder/arm pain after a slip and fall. Your x-ray was very reassuring with no fractures or dislocations. X-rays can not tell us about soft tissues so you still may have strained or sprained the left shoulder. Please rest, ice the shoulder, use ibuprofen and Tylenol for pain, and follow up with the orthopedic doctor and physical therapist for further evaluation. Please take Ibuprofen (Motrin/Advil) or Acetaminophen (Tylenol) for pain. These are available over the counter. You may take Ibuprofen 600 mg every 8 hours with food for pain. You may also take Acetaminophen 650 mg every 4-6 hours for pain. Do not exceed 3000 mg of Tylenol a day as this can cause liver damage. Do not drink alcohol with either of these medications. Please follow up with your primary care doctor within the next 2-3 days for ER follow-up. (If you do not have a PCP you can call [phone]. ?to schedule an appointment with an [facility] Primary Care Provider) IF YOU DEVELOP ANY NEW OR WORSENING SYMPTOMS, RETURN TO THE ER! Please read the attached instructions, they highlight more specific treatments and interventions for you at home. Thank you for letting me participate in your care, Shruthi Guidry PA-C Prescriptions: No Action estradiol 0.025 mg/24 hr patch semiweekly 1 patch transdermal 2XW Rx Instructions: apply 1 patch for 3 days alternating with 1 patch for 4 days each week Zyrtec 10 mg capsule 10 mg PO DAILY fluticasone propionate 50 mcg/actuation [place],Suspension 1 spray INTRANASAL DAILY Rx Instructions: administer into each nostril acetaminophen 325 mg Tablet 650 mg PO Q6H PRN (Reason: Fever/Mild Pain (1-3)) Qty: 120 0RF oxycodone 5 mg Tablet 5 mg PO Q4-6H PRN (Reason: Pain, Moderate (4-6)) Qty: 42 0RF hydroxyzine pamoate 25 mg Capsule 25 mg PO Q4HR PRN (Reason: Nausea And Vomiting) Qty: 40 0RF Referrals: Jarad Vega MD [Primary Care Provider] - Stand Alone Forms: Patient Portal/API/Survey ED Sign-out <Ailyn Dupont MD - Last Filed: 05/16/24 23:27> Cosign ED Attending Cosignature Attestation: I did not see this patient. I was available all times for consultation.
[2024-05-16] MEDS: ACETAMINOPHEN 325 MG TABLET 975 MG PO (18:20)
[2024-05-16] MEDS: KETOROLAC 30 MG/ML VIAL IM (18:20)
[2024-05-16 18:38] VITALS: BP 130/88; PULSE 76; RESP 16; O2SAT 100
== END 2024-05-16 18:34 | disposition home or self-care (01) ==
PROVIDERS: Emergency Provider Physician Assistant; PCP General Practice
DX: S40.012A Contusion of left shoulder, initial encounter (principal); W00.9XXA Unspecified fall due to ice and snow, initial encounter
CPT/HCPCS: 73030; 96372; 99283; J1885

== ENCOUNTER → 2024-08-09 07:14 | Outpatient (CLI) | payer OTHER, SELFPAY ==
[2022-08-11 20:47] VITALS: BMI 25.4
--- NOTE | 2024-08-09 07:16 | DI.MRI.S_ITS ---
PROCEDURE: MR CERVICAL SPINE WO CON INDICATIONS: Neurosurgery planning TECHNIQUE: Noncontrast sagittal T1 spin echo and T2 fast spin echo, sagittal STIR, foraminal oblique sagittal T2 fast spin echo, and axial gradient echo or T2 fast spin echo through the cervical spine. COMPARISON: [facility], CR, XR CERVICAL SPINE 2 OR 3 VIEWS, 03/24/2023, 13:18. [facility], MR, MR CERVICAL SPINE WITHOUT CONTRAST, 08/09/2023, 8:30. [facility], CR, XR CERVICAL SPINE 2 OR 3 VIEWS, 02/14/2024, 13:31. [facility], RF, CERVICAL SPINE INTERLAMINAR, 03/26/2024, 11:11. [facility], CT, CT CERVICAL SPINE WO CON, 08/09/2024, 8:17. FINDINGS: Image quality: Excellent. Alignment and Curvature: There is normal bony alignment. Postsurgical changes of anterior discectomy and anterior fusion plate placement fix by bilateral transverse screws with interbody disc prosthesis devices spanning C4 through C6 are noted, as seen on CT scanning same day. Stable anatomic alignment. Bone Marrow: Marrow demonstrates normal overall signal considering metal artifact associated with the cervical plate and screws from C4 through C6. Spinal Cord: Visualized spinal cord has normal size and signal except for mild anterior impingement on the cord at the C3-4 disc level due to chronic degenerative changes and a posterior chronic disc bulge in that area. No cerebellar tonsillar herniation. Paraspinous Soft Tissues: No paravertebral masses. Prevertebral soft tissues are normal in thickness. C2-C3: Normal appearance. C3-C4: Stable chronic posterior disc bulge that is broad-based, but focally most prominent at the posterior midline and extending to a greater degree into the posterolateral recess on the left and the left neural foramen with secondary left neural [id number] foraminal stenosis as was previously present on outside MR scanning from 08/09/23. C4-C5: Normal appearance, mild metal artifact is reduced by current MR technique. C5-C6: Postsurgical level. Mild asymmetric left-sided foraminal stenosis due to uncovertebral osteophytic spurring and chronic mild asymmetric left-sided posterolateral residual disc bulge, previously present. C6-C7: Mild degenerative disc height reduction. An asymmetric left-sided posterolateral disc protrusion that extended slightly inferior to the disc level appears to have involuted with reference to the comparison study from 08/09/23 previously seen on series 2, image 13 and series 4, image 41. Currently no nerve root impingement is present at that site. C7-T1: Normal appearance. IMPRESSION: 1. Stable postsurgical changes after diskectomy, anterior plate from C4 through C6, and interbody disc prosthesis placement at C4-5 and C5-6. 2. Stable C3-C4 chronic posterior disc bulge that causes focal mild midline spinal stenosis mildly impinging on the anterior cervical cord at that level, without associated myelomalacia. This disc bulge extends leftward causing asymmetric foraminal stenosis as was previously the case on the outside comparison study 08/09/23. No definite appreciable worsening of impingement. 3. Improved left posterolateral disc protrusion present 08/16 with appreciable involution of an inferior projection of the disc protrusion into the left posterolateral recess and immediately below. Minimal residual. Dictated by: David Mendez M.D. on 08/09/2024 at 10:25 Approved by: David Mendez M.D. on 08/09/2024 at 10:51
--- NOTE | 2024-08-09 07:16 | DI.MRI.S_ITS ---
PROCEDURE: MR ANGIO HEAD WO CON INDICATIONS: Neurosurgery planning TECHNIQUE: Noncontrast axial 3-D [id number] MR angiogram, with 3-dimensional maximum intensity projection (MIP) reformats of the internal carotid arteries and posterior circulation then performed. 3D [id number] MRV images were also acquired. COMPARISON: [facility], CT, CT ANGIO NECK, 08/09/2024, 8:17. FINDINGS: Image quality: Excellent. Anterior circulation: Intracranial internal carotid arteries are normal in size and flow. There is a diminutive left A1 segment, with a corresponding robust right A1 segment. This is considered to be a normal developmental variant of the [place], of typically no clinical consequence. The flow within the paired anterior cerebral arteries is otherwise normal and symmetric. The flow within the middle cerebral arteries is normal and symmetric. The anterior communicating artery is seen. No aneurysms are seen. Posterior circulation: Visualized portions of the vertebral arteries demonstrate normal caliber, and join to form a normal appearing basilar artery. There is a prominent left posterior communicating artery seen, with an accompanying diminutive left P1 segment. This is attributed to a type origin of the right posterior cerebral artery, which is considered to be a normal developmental variant of typically no clinical consequence. The flow within the posterior cerebral arteries is normal and symmetric. No aneurysms are seen. On the MRV images, all visualized veins appear patent. There is asymmetry of the lateral transverse sinuses, right smaller than left. This degree of asymmetry is considered to be within developmental limits. IMPRESSION: No significant intracranial arterial abnormality is seen. MRV images were also acquired, which demonstrate no significant abnormality. Additional findings: [id number] developmental anomalies. Dictated by: Terrence Haynes M.D. on 08/09/2024 at 13:09 Approved by: Terrence Haynes M.D. on 08/09/2024 at 13:12
--- NOTE | 2024-08-09 07:17 | DI.CT.S_ITS ---
PROCEDURE: CT CERVICAL SPINE WO CON INDICATIONS: Neurosurgery planning TECHNIQUE: Noncontrast 3 mm thick sections acquired from the skull base to the T4 level. Sagittal and coronal reformats were then constructed. For radiation dose reduction, the following was used: automated exposure control, adjustment of mA and/or kV according to patient size. COMPARISON: None. FINDINGS: Image quality: Excellent. Bones: No fractures or dislocations. Straightening of the normal cervical lordosis. C4 through C6 ACDF hardware in place. Hardware appears intact without surrounding fracture or lucency. Degenerative changes of the cervical spine which are better evaluated on same-day MRI. Visualized superior ribs are intact. Soft tissues: Prevertebral soft tissues are normal in thickness. No paravertebral hematomas. No apical pneumothoraces. IMPRESSION: C4 through C6 ACDF hardware in place. No findings concerning for hardware complication. Dictated by: Isaias Colvin M.D. on 08/09/2024 at 15:36 Approved by: Isaias Colvin M.D. on 08/09/2024 at 15:50
--- NOTE | 2024-08-09 07:18 | DI.CT.S_ITS ---
PROCEDURE: CT ANGIO NECK INDICATIONS: Neurosurgery planning TECHNIQUE: After the administration of intravenous contrast, 1.5 mm axial sections acquired from the aortic arch to the [place]. Maximum intensity projection (MIP) reformats were then performed. COMPARISON: None. FINDINGS: Image quality: Diagnostic. Carotid system: The great vessels demonstrate a conventional anatomy as they arise from the aortic arch. The origins of the common carotid arteries appear patent. The common carotid arteries demonstrate normal calibers and courses. The bifurcation regions appear normal bilaterally. The internal carotid arteries demonstrate normal caliber and course. Posterior circulation: The origins of the vertebral arteries appear patent. The more superior portions of the vertebral arteries demonstrate normal course and caliber. They join to form a normal appearing basilar artery. Soft tissues: Visualized neck soft tissues demonstrate no suspicious abnormalities. The thyroid gland demonstrates no significant abnormality. Bones: No suspicious bony lesions. Visualized cervical spine appears normally aligned. Degenerative changes of the spine status post C4 through C6 ACDF. IMPRESSION: No significant abnormality is seen within the arteries of the neck. Any quantitative stenosis measurements were performed using the NASCET criteria. Dictated by: Isaias Colvin M.D. on 08/09/2024 at 15:50 Approved by: Isaias Colvin M.D. on 08/09/2024 at 15:54
== END ==
LOC: MRI 07:15
DX: M50.31 Other cervical disc degeneration, high cervical region (principal); M48.02 Spinal stenosis, cervical region; M50.223 Other cervical disc displacement at C6-C7 level; Z98.1 Arthrodesis status
CPT/HCPCS: 70498; 70544; 72125; 72141; Q9967